=== PATIENT | female | born 1985 | race African-American/Black ===

== ENCOUNTER 2024-10-06 11:31 | Emergency (ER) | payer BC ==
[2024-10-06] MEDS ORDERED: Ondansetron ODT 4 MG TAB ONE (12:24)
[2024-10-06 12:51] LABS: Bacteria/HPF 1+ HPF (None Seen); Bilirubin Negative (Negative); Blood, Urine 3+ (Negative); CAUTI Indications for Culture Dysuria,urgency,freq; Clarity Turbid (Clear); Glucose, Urine (Dipstick) Normal (Negative); Ketone, Urine 40 mg/dL (Negative); Leukocyte 75 Leu/uL (Negative); Nitrite Negative (Negative); Protein, Urine (Dipstick) 70 mg/dL (Neg-Trace); RBC/HPF Greater than 50 HPF (0-3); Specific Gravity, Urine 1.035 (1.002-1.036)
[2024-10-06 12:52] LABS: Pregnancy Test - Urine (BHCG) Negative (Negative); Pregu Control Background? CLEAR/WHITE (CLR/WHITE); Pregu Control Bar Appear? YES (CONTROL BAR); Specific Gravity 1.035 (1.002-1.036); Urine Culture Reflex Yes Yes
== END 2024-10-06 13:20 | disposition home or self-care (01) ==
LOC: ERS 11:31
DX: B34.9 Viral infection, unspecified (principal); N39.0 Urinary tract infection, site not specified
CPT/HCPCS: 81001; 81025; 87086; 87428; 99283; Q0162

== ENCOUNTER 2025-07-25 20:04 | Emergency (ER) | payer BC, OTHER | END 2025-07-25 22:01 | disposition home or self-care (01) | LOC: ERS 20:04 | DX: J06.9 Acute upper respiratory infection, unspecified (principal) | CPT/HCPCS: 87428; 99283 ==